=== PATIENT | male | born 1965 | race Caucasian/White ===

== ENCOUNTER 2021-02-10 14:11 | Inpatient (IN) ==
[2021-02-10] MEDS ORDERED: Dexamethasone IV 4 MG/ML VIAL 1 ml VIAL IV SLOW PU ONE (14:30)
[2021-02-10 15:07] LABS: Venous Bicarbonate HCO3 23.5 mmol/L (24-28)
[2021-02-10] MEDS ORDERED: Remdesivir 100 mg Vial 200 MG in NS 0.9% 250 ml 210 ML IV ONE (16:05)
[2021-02-10] MEDS ORDERED: Dextrose 50% Syringe 50 ml 25 GM/50 ML SYRINGE IV PUSH PRN (16:06)
[2021-02-10] MEDS ORDERED: Tocilizumab 200 MG/10 ML 10 ml VIAL IVPB ONE (16:07)
[2021-02-10 16:28] LABS: ABS Lymphocytes 0.4 10^3/ul (1.0-4.8); ABS Monocytes 0.4 10^3/ul (0-0.8); Hematocrit 44 % (42-52); Hemoglobin 15.1 g/dL (14.0-18.0); Lymphocyte % 3.6 %; Mean Corpuscular HGB Conc 35 g/dL (31-36); Mean Corpuscular Hemoglobin 30 pg (27-31); Mean Corpuscular Volume 85 fL (80-94); Nucleated Red Blood Cells % 0.3; Platelet Count 315 10^3/uL (150-450); Red Cell Distribution Width 16 % (10-15); White Blood Count 9.8 10^3/uL (3.5-10.8)
[2021-02-10 16:32] LABS: PCO2 Arterial 40 mmHg (35-45)
[2021-02-10 16:34] LABS: PO2 Arterial 24 mmHg (80-100)
[2021-02-10 16:37] LABS: Activated Partial Thrombo Time 26.6 seconds (26.0-38.0); INR 1.26 (0.86-1.15)
[2021-02-10 16:37] LABS: Rapid COVID-19 Molecular Detected (Undetected)
[2021-02-10 16:44] LABS: LDH 683 U/L (140-271)
[2021-02-10 16:46] LABS: ALT 56 U/L (7-52); AST 76 U/L (13-39); Albumin 3.2 g/dL (3.2-5.2); Albumin/Globulin Ratio 0.8 (1-3); Alkaline Phosphatase 90 U/L (35-149); Anion Gap 16 mmol/L (2-11); Blood Urea Nitrogen 68 mg/dL (6-24); C Reactive Protein 179.73 mg/L (<8.01); CO2 Carbon Dioxide 24 mmol/L (22-32); Calcium 8.1 mg/dL (8.6-10.3); Chloride 88 mmol/L (101-111); EGFR African American 29.6 (>60); EGFR Non-African American 24.5 (>60); Globulin 3.9 g/dL (2-4); Glucose 299 mg/dL (70-100); Potassium 4.8 mmol/L (3.5-5.0); Sodium 128 mmol/L (135-145); Total Protein 7.1 g/dL (6.4-8.9)
[2021-02-10] MEDS ORDERED: Enoxaparin 60 MG/0.6 ML SYR SUBCUT SCH (17:00)
[2021-02-10] MEDS ORDERED: Baricitinib 2 MG TAB (NF) PO SCH (17:00)
[2021-02-10 17:20] LABS: Troponin I 0.05 ng/mL (<0.03)
[2021-02-10] MEDS: Insulin GLARGINE 100 un/ml 10 ml VIAL SUBCUT SCH (21:46)
[2021-02-10] MEDS: methylPREDNISolone SOD 40 mg/ml 1 ml VIAL IV SCH (21:46)
[2021-02-10 21:52] LABS: Magnesium 2.4 mg/dL (1.9-2.7)
[2021-02-10 21:58] LABS: Phosphorus 4.3 mg/dL (2.5-5.0)
[2021-02-10] MEDS: Enoxaparin 80 MG/0.8 ML SYR SUBCUT SCH (21:58)
[2021-02-10] MEDS ORDERED: Tocilizumab** 800 MG in NS 0.9% 100 ml BAG 60 ML IVPB ONE (22:00)
[2021-02-10 22:07] LABS: Glucose Confirmatory 416 mg/dL (70-100)
[2021-02-10] MEDS: NS 0.9% 1000 ml BAG 1,000 ML IV SCH (22:15)
[2021-02-10 22:56] LABS: PCO2 Arterial 28 mmHg (35-45); PO2 Arterial 89 mmHg (80-100)
[2021-02-10] MEDS: cefTRIAXone 1 gm/50 mL NS BAG 1 GM/50 ML BAG IVPB SCH (23:03)
[2021-02-10] MEDS ORDERED: Azithromycin 500 mg/250 ml NS 500 MG/250 ML BAG IVPB ONE (23:30)
[2021-02-11 02:27] LABS: Troponin I 0.04 ng/mL (<0.03)
[2021-02-11 04:20] LABS: ABS Lymphocytes 0.2 10^3/ul (1.0-4.8); ABS Monocytes 0.1 10^3/ul (0-0.8); ABS Neutrophils 4.9 10^3/ul (1.5-7.7); Hematocrit 39 % (42-52); Hemoglobin 13.1 g/dL (14.0-18.0); Lymphocyte % 3.8 %; Mean Corpuscular HGB Conc 34 g/dL (31-36); Mean Corpuscular Hemoglobin 29 pg (27-31); Mean Corpuscular Volume 86 fL (80-94); Mean Platelet Volume 8.2 fL (7.4-10.4); Platelet Count 267 10^3/uL (150-450); Red Cell Distribution Width 16 % (10-15); White Blood Count 5.3 10^3/uL (3.5-10.8)
[2021-02-11 04:37] LABS: Blood Urea Nitrogen 75 mg/dL (6-24); CO2 Carbon Dioxide 23 mmol/L (22-32); Calcium 7.3 mg/dL (8.6-10.3); Chloride 93 mmol/L (101-111); EGFR African American 30.8 (>60); EGFR Non-African American 25.4 (>60); Glucose 393 mg/dL (70-100); Sodium 127 mmol/L (135-145)
[2021-02-11 04:58] LABS: Anion Gap 11 mmol/L (2-11)
[2021-02-11] MEDS: methylPREDNISolone SOD 40 mg/ml 1 ml VIAL IV SCH ×2 (09:16→15:06)
[2021-02-11] MEDS: Enoxaparin 80 MG/0.8 ML SYR SUBCUT SCH ×2 (09:16→22:11)
[2021-02-11 09:59] LABS: PCO2 Arterial 33 mmHg (35-45); PO2 Arterial 62 mmHg (80-100)
[2021-02-11 10:02] LABS: Urine Appearance Cloudy; Urine Bilirubin Negative (Negative); Urine Blood 3+ (Negative); Urine Color Yellow; Urine Glucose 3+(>=500 mg/dL) (Negative); Urine Ketones Trace (Negative); Urine Nitrite Negative (Negative); Urine Protein 3+(>=500 mg/dL) (Negative); Urine Specific Gravity 1.023 (1.002-1.030); Urine Urobilinogen Negative (Negative)
[2021-02-11] MEDS: NS 0.9% 1000 ml BAG 1,000 ML IV SCH (10:06)
[2021-02-11 10:09] LABS: Urine Bacteria 1+ (Absent); Urine Red Blood Cell 1+(3-5/hpf) (Absent); Urine Squamous Epithelial Cell Present (Absent); Urine White Blood Cell Trace(0-5/hpf) (Absent)
[2021-02-11] MEDS: Insulin GLARGINE 100 un/ml 10 ml VIAL SUBCUT SCH ×3 (15:05→22:22)
[2021-02-11] MEDS: Pantoprazole VIAL 40 MG VIAL IV SCH (15:06)
[2021-02-11] MEDS: Remdesivir 100 mg Vial 100 MG in NS 0.9% 250 ml 230 ML IV SCH (22:08)
[2021-02-12] MEDS: cefTRIAXone 1 gm/50 mL NS BAG 1 GM/50 ML BAG IVPB SCH ×2 (00:17→23:53)
[2021-02-12] MEDS: methylPREDNISolone SOD 40 mg/ml 1 ml VIAL IV SCH ×3 (00:26→15:55)
[2021-02-12 06:20] LABS: ABS Lymphocytes 0.2 10^3/ul (1.0-4.8); ABS Monocytes 0.2 10^3/ul (0-0.8); ABS Neutrophils 6.6 10^3/ul (1.5-7.7); Hematocrit 38 % (42-52); Lymphocyte % 2.8 %; Mean Corpuscular HGB Conc 35 g/dL (31-36); Mean Corpuscular Hemoglobin 29 pg (27-31); Mean Corpuscular Volume 84 fL (80-94); Mean Platelet Volume 7.6 fL (7.4-10.4); Nucleated Red Blood Cells % 0.1; Platelet Count 283 10^3/uL (150-450); Red Blood Count 4.47 10^6 /uL (4.18-5.48); Red Cell Distribution Width 16 % (10-15); White Blood Count 7.1 10^3/uL (3.5-10.8)
[2021-02-12 06:34] LABS: Calcium 7.5 mg/dL (8.6-10.3); EGFR African American 39.3 (>60); EGFR Non-African American 32.5 (>60); Magnesium 2.7 mg/dL (1.9-2.7); Phosphorus 4.4 mg/dL (2.5-5.0); Potassium 4.4 mmol/L (3.5-5.0)
[2021-02-12] MEDS: Insulin GLARGINE 100 un/ml 10 ml VIAL SUBCUT SCH ×2 (08:17→21:34)
[2021-02-12] MEDS: Pantoprazole VIAL 40 MG VIAL IV SCH (08:17)
[2021-02-12 12:05] LABS: Activated Partial Thrombo Time 27.9 seconds (26.0-38.0); INR 1.22 (0.86-1.15)
[2021-02-12] MEDS: Enoxaparin 80 MG/0.8 ML SYR SUBCUT SCH (12:09)
[2021-02-12] MEDS: Heparin 5000 UNITS/ML 1 mL VIAL SUBCUT SCH ×2 (15:55→21:33)
[2021-02-12] MEDS ORDERED: Polyethylene Glycol 3350 17 GM PACKET PO PRN (17:29)
[2021-02-12] MEDS: Remdesivir 100 mg Vial 100 MG in NS 0.9% 250 ml 230 ML IV SCH (21:42)
[2021-02-13] MEDS: methylPREDNISolone SOD 40 mg/ml 1 ml VIAL IV SCH ×2 (00:52→08:05)
[2021-02-13] MEDS: Heparin 5000 UNITS/ML 1 mL VIAL SUBCUT SCH ×3 (05:58→21:32)
[2021-02-13 06:13] LABS: ABS Lymphocytes 0.1 10^3/ul (1.0-4.8); ABS Monocytes 0.3 10^3/ul (0-0.8); ABS Neutrophils 7.6 10^3/ul (1.5-7.7); Hematocrit 40 % (42-52); Hemoglobin 13.4 g/dL (14.0-18.0); Lymphocyte % 1.6 %; Mean Corpuscular HGB Conc 33 g/dL (31-36); Mean Corpuscular Hemoglobin 29 pg (27-31); Mean Corpuscular Volume 86 fL (80-94); Mean Platelet Volume 7.6 fL (7.4-10.4); Platelet Count 320 10^3/uL (150-450); Red Blood Count 4.67 10^6 /uL (4.18-5.48); Red Cell Distribution Width 16 % (10-15); White Blood Count 7.9 10^3/uL (3.5-10.8)
[2021-02-13 06:30] LABS: Calcium 7.6 mg/dL (8.6-10.3); EGFR African American 45.4 (>60); EGFR Non-African American 37.5 (>60); Magnesium 2.7 mg/dL (1.9-2.7); Phosphorus 3.6 mg/dL (2.5-5.0); Potassium 4.2 mmol/L (3.5-5.0)
[2021-02-13] MEDS: Pantoprazole VIAL 40 MG VIAL IV SCH (08:40)
[2021-02-13] MEDS ORDERED: Insulin GLARGINE 100 un/ml 10 ml VIAL SUBCUT SCH (09:00)
[2021-02-13] MEDS ORDERED: Dextrose 50% Syringe 50 ml 25 GM/50 ML SYRINGE IV PUSH PRN (13:24)
[2021-02-13] MEDS: Insulin GLARGINE 100 un/ml 10 ml VIAL SUBCUT SCH (21:31)
[2021-02-13] MEDS: Remdesivir 100 mg Vial 100 MG in NS 0.9% 250 ml 230 ML IV SCH (21:32)
[2021-02-13] MEDS: cefTRIAXone 1 gm/50 mL NS BAG 1 GM/50 ML BAG IVPB SCH (23:00)
[2021-02-14] MEDS: Heparin 5000 UNITS/ML 1 mL VIAL SUBCUT SCH ×3 (05:28→20:56)
[2021-02-14 07:09] LABS: Hematocrit 41 % (42-52); Hemoglobin 13.9 g/dL (14.0-18.0); Mean Corpuscular HGB Conc 34 g/dL (31-36); Mean Corpuscular Hemoglobin 29 pg (27-31); Mean Corpuscular Volume 86 fL (80-94); Mean Platelet Volume 7.8 fL (7.4-10.4); Platelet Count 271 10^3/uL (150-450); Red Blood Count 4.76 10^6 /uL (4.18-5.48); Red Cell Distribution Width 16 % (10-15); White Blood Count 6.3 10^3/uL (3.5-10.8)
[2021-02-14 07:20] LABS: Blood Urea Nitrogen 64 mg/dL (6-24); CO2 Carbon Dioxide 23 mmol/L (22-32); Calcium 7.7 mg/dL (8.6-10.3); Chloride 105 mmol/L (101-111); EGFR Non-African American 40.5 (>60); Glucose 195 mg/dL (70-100); Magnesium 2.6 mg/dL (1.9-2.7); Sodium 138 mmol/L (135-145)
[2021-02-14 08:20] LABS: ABS Lymphocytes 0.2 10^3/ul (1.0-4.8); ABS Monocytes 0.2 10^3/ul (0-0.8); ABS Neutrophils 5.9 10^3/ul (1.5-7.7); Eosinophil % 0.1 %; Lymphocyte % 2.8 %; Nucleated Red Blood Cells % 0.1; RBC Morphology Normal (Normal)
[2021-02-14 08:42] LABS: Anion Gap 10 mmol/L (2-11)
[2021-02-14] MEDS: Dexamethasone IV 4 MG/ML VIAL 1 ml VIAL IV SLOW PU SCH (08:53)
[2021-02-14] MEDS: Pantoprazole VIAL 40 MG VIAL IV SCH (08:53)
[2021-02-14] MEDS: Insulin GLARGINE 100 un/ml 10 ml VIAL SUBCUT SCH ×2 (08:54→20:57)
[2021-02-14 10:12] LABS: Phosphorus 2.9 mg/dL (2.5-5.0); Potassium Redraw 4.1 mmol/L (3.5-5.0)
[2021-02-14] MEDS ORDERED: Buffered Lidocaine 1% SYRIN 1 ml INTRADERM ONE (10:13)
[2021-02-14] MEDS ORDERED: Furosemide 40 mg/4 ml IV VIAL IV SLOW PU ONE (10:22)
[2021-02-14] MEDS: Remdesivir 100 mg Vial 100 MG in NS 0.9% 250 ml 230 ML IV SCH (20:57)
[2021-02-14] MEDS: cefTRIAXone 1 gm/50 mL NS BAG 1 GM/50 ML BAG IVPB SCH (22:16)
[2021-02-15] MEDS: Heparin 5000 UNITS/ML 1 mL VIAL SUBCUT SCH ×3 (05:00→21:06)
[2021-02-15 05:26] LABS: ABS Eosinophils 0.2 10^3/ul (0-0.6); ABS Lymphocytes 0.1 10^3/ul (1.0-4.8); ABS Monocytes 0.1 10^3/ul (0-0.8); ABS Neutrophils 5.4 10^3/ul (1.5-7.7); Eosinophil % 2.7 %; Hematocrit 43 % (42-52); Hemoglobin 14.6 g/dL (14.0-18.0); Lymphocyte % 2.3 %; Mean Corpuscular HGB Conc 34 g/dL (31-36); Mean Corpuscular Hemoglobin 29 pg (27-31); Mean Corpuscular Volume 85 fL (80-94); Mean Platelet Volume 7.7 fL (7.4-10.4); Nucleated Red Blood Cells % 0.1; Platelet Count 352 10^3/uL (150-450); Red Blood Count 5.07 10^6 /uL (4.18-5.48); Red Cell Distribution Width 16 % (10-15); White Blood Count 5.8 10^3/uL (3.5-10.8)
[2021-02-15 05:47] LABS: Calcium 7.7 mg/dL (8.6-10.3); EGFR African American 46.6 (>60); EGFR Non-African American 38.5 (>60); Magnesium 2.5 mg/dL (1.9-2.7); Phosphorus 3.1 mg/dL (2.5-5.0); Potassium 4.3 mmol/L (3.5-5.0)
[2021-02-15] MEDS: Insulin GLARGINE 100 un/ml 10 ml VIAL SUBCUT SCH (08:04)
[2021-02-15] MEDS: Pantoprazole VIAL 40 MG VIAL IV SCH (08:04)
[2021-02-15] MEDS: Dexamethasone IV 4 MG/ML VIAL 1 ml VIAL IV SLOW PU SCH (08:05)
[2021-02-15] MEDS ORDERED: Morphine 2 MG/ML SYRINGE IV ONE (20:00)
[2021-02-16] MEDS: Heparin 5000 UNITS/ML 1 mL VIAL SUBCUT SCH ×2 (06:03→14:18)
[2021-02-16 07:55] LABS: Albumin 2.9 g/dL (3.2-5.2); Albumin/Globulin Ratio 0.9 (1-3); Calcium 7.8 mg/dL (8.6-10.3); EGFR African American 42.3 (>60); EGFR Non-African American 34.9 (>60); Globulin 3.1 g/dL (2-4); Potassium 4.8 mmol/L (3.5-5.0); Total Bilirubin 0.7 mg/dL (0.2-1.0)
[2021-02-16] MEDS ORDERED: Insulin GLARGINE 100 un/ml 10 ml VIAL SUBCUT SCH (09:00)
[2021-02-16] MEDS: Pantoprazole VIAL 40 MG VIAL IV SCH (09:41)
[2021-02-16] MEDS: Dexamethasone IV 4 MG/ML VIAL 1 ml VIAL IV SLOW PU SCH (09:41)
[2021-02-16] MEDS ORDERED: Succinylcholine 200 mg VIAL 20 mg/ml 10 ml VIAL (200 mg) ONE (10:15)
[2021-02-16] MEDS ORDERED: Rocuronium 50 mg VIAL 10 mg/ml 5 ml VIAL (50 mg) ONE (10:15)
[2021-02-16] MEDS ORDERED: Morphine 10 MG/ML VIAL (1 ml) ONE ×2 (10:31→12:25)
[2021-02-16] MEDS ORDERED: Morphine 10 MG/ML VIAL (1 ml) IV ONE ×2 (10:36→12:23)
[2021-02-16 14:05] VITALS: BP 117/83
[2021-02-16] MEDS ORDERED: Lorazepam PYXIS KEY PRN (14:38)
[2021-02-16] MEDS ORDERED: LORazepam 2 mg VIAL 1 ml IV PUSH PRN (14:38)
[2021-02-16] MEDS ORDERED: Morphine PCA ADULT 5 MG/ML 30 ML PCA SCH ×3 (15:00→15:23)
== END 2021-02-16 15:30 | disposition expired | DRG 137 ==
LOC: ED 14:11 → SUATTDRO 15:57 → ICU 15:57
PROVIDERS: ADMIT Internal Medicine; ATTEND Internal Medicine